=== PATIENT | female | born 1955 | race Hispanic/Latino ===

== ENCOUNTER 2019-11-18 21:11 | Inpatient (IN) | payer MEDICARE ==
[2019-11-18] MEDS ORDERED: Tranexamic Acid 1,000 MG/10 ML VIAL ONE (21:33)
[2019-11-18] MEDS ORDERED: cefTRIAXone\\ROCEPHIN 2 GM VIAL ONE (21:33)
[2019-11-18 21:35] LABS: #Eosinphils 0.1 thou/uL (0.0-0.7); #Lymphocytes 1.5 thou/uL (1.20-3.40); #Monocytes 0.9 thou/uL (0.11-0.59); #Neutrophils 11.5 thou/uL (1.40-6.50); %Basophils 0.3 % (0.0-1.0); %Eosinophils 0.4 % (0.0-10.0); %Lymphocytes 10.7 % (21.0-51.0); %Monocytes 6.7 % (0.0-10.0); %Neutrophils 81.9 % (42.0-75.0); Hemoglobin 7.9 g/dL (12.0-16.0); Mean Corpuscular HGB CONC 33.5 g/dL (32.0-36.0); Mean Platelet Volume 7.7 fL (7.4-10.4); Platelet Count 153 thou/uL (130-400); RBC Distribution Width 14.6 % (11.5-14.5); Red Blood Cell (RBC) Count 2.32 mill/uL (4.20-5.40)
[2019-11-18 21:42] LABS: INR-International Normal Ratio 1.7; PTT 36.6 SEC (22.9-36.1); Prothrombin Time 19.8 SEC (12.0-14.7)
[2019-11-18] MEDS ORDERED: Octreotide Acetate 1,250 MCG in Sodium Chloride 0.9% 250 ML 250 ML IVPB SCH (21:45)
[2019-11-18] MEDS ORDERED: Tranexamic Acid 1,000 MG in Sodium Chloride 0.9% 250 ML 250 ML IVP SCH (21:45)
[2019-11-18 22:00] LABS: ALT (SGPT) 18 U/L (8-55); AST (SGOT) 21 U/L (5-34); Albumin 2.5 g/dL (3.4-4.8); Alkaline Phosphatase 53 U/L (40-110); Anion Gap 19 mmol/L (10-20); BUN (Urea Nitrogen) 36 mg/dL (9.8-20.1); Bilirubin, Total 0.8 mg/dL (0.2-1.2); Calc. Creatinine Clearance 0 mL/min (70-130); Calcium 7.8 mg/dL (7.8-10.44); Carbon Dioxide 13 mmol/L (23-31); Chloride 110 mmol/L (98-107); Estimated GFR-MDRD 84; Globulin 2.2 g/dL (2.4-3.5); Glucose 182 mg/dL (80-115); Potassium 4.2 mmol/L (3.5-5.1); Protein, Total 4.7 g/dL (6.0-8.3); Sodium 138 mmol/L (136-145)
--- NOTE | 2019-11-19 00:10 | PDOC.FPRHP ---
Addendum entered and electronically signed by Felix Mccormack MD 11/19/19 05:05 : All injuries listed in the HPI, Physical Exam, and A/P are in reference to the patient's left knee. Original Note: - History of Present Illness Chief Complaint: Hematemesis History of Present Illness: Patient is a 64 y/o female with a PMH significant for cirrhosis and multiple episodes of hematemesis secondary to esophageal varices that required banding, most recently in January of 2019, who presents to the ED for evaluation of multiple episodes of hematemesis. Patient states that she had ~10 episodes of hematemesis beginning earlier this afternoon. Patient was initially unconcerned, because she had drank a red smoothie earlier in the day, but became concerned when she began to feel weak/dizzy in between episodes. This has not happened recently, although the patient did note that she had intermittently dark/bright red stools over the past several months, but was unconcerned. Patient states that she then tried to castillo to the bathroom in order to vomit again but fell, landing predominantly on her right knee. Patient s subsequently called EMS, who evaluated the patient in the field and found her to be extremely hypotensive, with an SBP in the low 60s. Patient was administered epinephrine and [facility] was alerted. During evacuation, the patient was administered 1U pRBCs and 1U FFP. Patient denied recent fevers, chills, headaches, direct trauma to the head, continued visual disturbances, N/V, cough, SOB, chest pains, ABD pain and ongoing bleeding. ED Course: s/p TXA, Octreotide, Ceftriaxone X-Ray (Right Knee): Comminuted Fx of Patella - official read pending - Allergies/Adverse Reactions Allergies Allergy/AdvReac Type Severity Reaction Status Date / Time Penicillins Allergy Verified 11/19/19 01:27 sea food Allergy Rash Uncoded 11/19/19 01:27 - History PMHx: Hx of Esophageal Varices, Cirrhosis (Etiology Unknown), EtOH Abuse, Tobacco Abuse PSHx: Variceal Banding (2019), Breast Augmentation FHx: Patient denies known history of Colon or Hepatic CA Social: ~3 beers daily, 7-10 cigarettes daily, denies current or previous drug abuse. Code: DNAR - Review of Systems General: denies: fever/chills, fatigue Eyes: denies: vision changes Respiratory: denies: cough, shortness of breath Cardiovascular: denies: chest pain Gastrointestinal: reports: vomiting, GI bleeding. denies: nausea, diarrhea, abdominal pain Skin: reports: jaundice Musculoskeletal: reports: pain, stiffness, swelling, arthritis/arthralgias Neurological: reports: weakness - Vital signs BP: [113/55] HR: [82] RR: [14] Tmax: [] Pox: [98]% on [Room Air] Wt: [51 kg] - Physical Exam Constitutional: NAD, awake, alert and oriented, well developed HEENT: normocephalic and atraumatic, PERRLA, EOMI, grossly normal vision, grossly normal hearing, normal nasal mucosa, MMM, oropharynx clear, good dention , other (Scleral Icterus) Neck: supple, FROM, trachea midline, no LAD, no thyromegaly Chest: no-tender to palpation, no lesions Heart: RRR, normal S1/S2, no murmurs/rubs/gallops, pulses present, no edema Lungs: CTAB, no respiratory distress, good air movement, no rales/rhonchi, no wheezing, no retractions Abdomen: soft, non-tender, bowel sounds present, other (Liver edge palpable 1 cm below costal margin) Musculoskeletal: other (Right leg immobilized in full leg splint) Neurological: no focal deficit Skin: no rash/lesions, capillary refill <2 seconds, other (Jaundice) Heme/Lymphatic: no purpura, no petechia, no LAD, other (Scattered bruises) Psychiatric: intact recent and remote memory FMR H&P: Results - Labs Result Diagrams: 11/19/19 03:30 11/19/19 03:30 Lab results: WBC 14.0 thou/uL (4.8-10.8) H 11/18/19 21:27 Hgb 7.9 g/dL (12.0-16.0) L 11/18/19 21:27 Hct 23.6 % (36.0-47.0) L 11/18/19 21:27 MCV 102.0 fL (78.0-98.0) H 11/18/19 21:27 Plt Count 153 thou/uL (130-400) 11/18/19 21:27 Neutrophils % 81.9 % (42.0-75.0) H 11/18/19 21:27 Sodium 138 mmol/L (136-145) 11/18/19 21:27 Potassium 4.2 mmol/L (3.5-5.1) 11/18/19 21:27 Chloride 110 mmol/L (98-107) H 11/18/19 21:27 Carbon Dioxide 13 mmol/L (23-31) L 11/18/19 21:27 BUN 36 mg/dL (9.8-20.1) H 11/18/19 21:27 Creatinine 0.70 mg/dL (0.6-1.1) 11/18/19 21:27 Glucose 182 mg/dL (80-115) H 11/18/19 21:27 Calcium 7.8 mg/dL (7.8-10.44) 11/18/19 21:27 Total Bilirubin 0.8 mg/dL (0.2-1.2) 11/18/19 21:27 AST 21 U/L (5-34) 11/18/19 21:27 ALT 18 U/L (8-55) 11/18/19 21:27 Alkaline Phosphatase 53 U/L (40-110) 11/18/19 21:27 Serum Total Protein 4.7 g/dL (6.0-8.3) L 11/18/19 21:27 Albumin 2.5 g/dL (3.4-4.8) L 11/18/19 21:27 - Radiology Interpretation Other Status: image reviewed by me (X-Ray (Right Knee): Patellar Fx) FMR H&P: A/P - Problem List (1) Cirrhosis Current Visit: Yes Status: Chronic Code(s): K74.60 - UNSPECIFIED CIRRHOSIS OF LIVER (2) History of ETOH abuse Current Visit: Yes Status: Chronic Code(s): F10.11 - ALCOHOL ABUSE, IN REMISSION (3) Tobacco abuse Current Visit: Yes Status: Chronic Code(s): Z72.0 - TOBACCO USE (4) Acute blood loss anemia Current Visit: Yes Status: Acute Code(s): D62 - ACUTE POSTHEMORRHAGIC ANEMIA (5) Esophageal varices with bleeding Current Visit: Yes Status: Acute Code(s): I85.01 - ESOPHAGEAL VARICES WITH BLEEDING - Plan Patient is a 64 y/o female who presents to the ED for evaluation of hematemesis. 1. Acute Blood Loss Anemia 2/2 Upper GI Bleed -Bleeding likely secondary to Esophageal Varices -s/p 1U pRBCs and 1U FFP -H.9 / Hct: 23.6 -BUN: 36 / Cr: 0.7 -VSS upon evaluation in ED - no evidence of ongoing bleed -Will continue to monitor hemodynamic status -Trend H&H w/ AM Labs 2. Esophageal Varices, suspected -Will initiate Octreotide gtt, Protonix BID -Ceftriaxone for SBP prophylaxis administered in ED - will continue -GI: Consulted from ED - will plan for endoscopy in AM - recs appreciated 3. Patellar Fracture, Right -X-Ray: Comminuted fracture - official read pending -Will consult Ortho in the AM 4. Cirrhosis -Patient is unsure of etiology, likely 2/2 EtOH -PT: 19.8 / INR: 1.7 / aPTT: 36.6 -Patient unsure of current medication regimen - will contact home Pharmacy in AM -MELD: 12 5. Hx of EtOH Abuse -ASE Protocol -Will financial services counselor on the importance of EtOH cessation 6. Tobacco Abuse -Nicotine Patch 14 mg Daily -Will financial services counselor on the importance of tobacco abuse cessation PCP: CC Code: HOLLIS Diet: NPO Activity: Ambulate w/ Assist VTE PPx: None Dispo: Patient is currently hemodynamically stable and admitted to the ICU for close observation and additional work-up. Plan for endoscopy in AM - GI recs appreciated. Plan for Ortho consult pending clinical course. Expected LOS > 48H. FMR H&P: Upper Level - Plan Date/Time: 11/19/19 0010 Lety Schulz DO, have evaluated this patient and agree with findings/plan as outlined by internal carver resident. Pertinent changes/additions are listed here. Pt is a 64 yo F with PMH of Alcoholic Cirrhosis and esophageal varices presenting via [facility] for hematemesis, hematochezia, and hypotension. Last hematemesis several hours ago. S/p 1u pRBC and 1u FFP in route. Dr. Ceja consulted from ED. Currently receiving Octreotide and IV protonix. She received TXA in ED. VS: BP 136/79, P 107, R18, T97.6, O2 100% RA PE: Gen: NAD HEENT: Moist MM, no LAD Heart: RRR, no murmurs or extra sounds. Distal pulses 2+ Lungs: CTAB, no wheezing. No increased work of breathing Abd: soft, nontender, BS+, no masses or hernias Ext: no cyanosis or edema Skin: no rashes Psych: AOx3 Pertinent Labs/Imaging: Blood type A+, antibody Neg Coag: PT 19.8, INR 1.7, PTT 36.6 WBC 14.0 Hgb 7.9, Hct 23.6, MCV 102 A/P: Acute GI Bleed with Known Alcoholic Cirrhosis -initially with hypotension s/p 1u pRBC and 1u FFP. Hemodynamically stable at this point. Repeat H/H 7.9. GI, Dr. Ceja consulted in ED, recommends holding further blood products. AM CBC. -continue Octreotide drip, IV protonix, and Rocephin for SBP prophylaxis -MELD 12 -NPO status pending endoscopy tomorrow in the AM -awaiting home med rec, plan to restart meds as appropriate. Macrocytic Anemia: -likely 2/2 chronic alcohol abuse and GI bleed -trend as above. Hyperchloremic Metabolic Acidosis: -2/2 above. Hyperglycemia: -reports no hx of DM -repeat in AM. Transverse Complete Patellar Fx- Nondisplaced s/p Fall: -brace in place. -consult ortho in am. Alcohol Abuse: -ASE scores without meds -No hx of DT's per patient -Last alcohol ingestion 6pm 11/17. Dispo: Stable, ICU admission to closely monitor with risk of rebleed. DVT PPx: SCD GI PPx: IV Protonix Addendum - Attending - Attending Attestation Date/Time: 11/19/19 1004 I personally evaluated the patient and discussed the management with Dr. Mccormack at time of admission to CCU last night. I agree with the History, Examination, Assessment and Plan documented above with any addition or exceptions noted below.
[2019-11-19] MEDS ORDERED: Nicotine 14 MG PATCH TD SCH (00:25)
[2019-11-19] MEDS ORDERED: Ondansetron ODT 4 MG TAB PO PRN (00:25)
[2019-11-19 04:13] LABS: ALT (SGPT) 22 U/L (8-55); AST (SGOT) 28 U/L (5-34); Albumin 2.9 g/dL (3.4-4.8); Alkaline Phosphatase 54 U/L (40-110); Anion Gap 13 mmol/L (10-20); BUN (Urea Nitrogen) 33 mg/dL (9.8-20.1); Bilirubin, Total 1.1 mg/dL (0.2-1.2); Calc. Creatinine Clearance 68 mL/min (70-130); Calcium 7.7 mg/dL (7.8-10.44); Carbon Dioxide 21 mmol/L (23-31); Chloride 111 mmol/L (98-107); Estimated GFR-MDRD 90; Globulin 2.2 g/dL (2.4-3.5); Glucose 128 mg/dL (80-115); Potassium 4.6 mmol/L (3.5-5.1); Protein, Total 5.1 g/dL (6.0-8.3); Sodium 140 mmol/L (136-145)
[2019-11-19 04:40] LABS: #Lymphocytes 1.8 thou/uL (1.20-3.40); #Monocytes 1.2 thou/uL (0.11-0.59); #Neutrophils 12.3 thou/uL (1.40-6.50); %Basophils 0.2 % (0.0-1.0); %Eosinophils 0.2 % (0.0-10.0); %Lymphocytes 11.5 % (21.0-51.0); %Monocytes 7.7 % (0.0-10.0); %Neutrophils 80.3 % (42.0-75.0); Hemoglobin 7.4 g/dL (12.0-16.0); Mean Corpuscular HGB CONC 33.2 g/dL (32.0-36.0); Mean Corpuscular Hemoglobin 32.5 pg (27.0-31.0); Mean Corpuscular Volume 97.8 fL (78.0-98.0); Mean Platelet Volume 7.9 fL (7.4-10.4); Platelet Count 136 thou/uL (130-400); RBC Distribution Width 15.5 % (11.5-14.5); Red Blood Cell (RBC) Count 2.28 mill/uL (4.20-5.40); White Blood Cell (WBC) Count 15.3 thou/uL (4.8-10.8)
[2019-11-19] MEDS: Pantoprazole 80 MG, Admixture Fee 1 EACH in Sodium Chloride 0.9% 100 ML IVPB SCH ×2 (06:31→14:54)
--- NOTE | 2019-11-19 07:17 | RAD ---
PORTABLE CHEST: HISTORY: Vomiting blood. FINDINGS: The lung lowry are clear. Heart and mediastinum appear unremarkable. The vascular markings are nor mal. There is a calcified nodule overlying the left upper lung. IMPRESSION: No acute process. POS: AGW
--- NOTE | 2019-11-19 07:20 | RAD ---
LEFT KNEE 4 VIEWS: HISTORY: Injury. FINDINGS: There is a transverse fracture through the superior patella without evidence of displacement. Small joint effusion. Mild prepatellar soft tissue swelling. Visualized femur, tibia, and fibula appear intact. There are mild degenerative changes. IMPRESSION: Evidence of acute fracture of patella. POS: AGW
[2019-11-19] MEDS ORDERED: Lidocaine 1% PF 5 ML VIAL ONE (08:13)
[2019-11-19] MEDS ORDERED: Rocuronium Bromide 10 MG/ML (10ML VIAL) ONE (08:13)
[2019-11-19] MEDS ORDERED: Succinylcholine Chloride 20 MG/ML 10 ml SYRINGE FS ONE (08:13)
[2019-11-19] MEDS ORDERED: PROPOFOL 200 MG/20 ML VIAL ONE (08:13)
[2019-11-19] MEDS ORDERED: PHENYLEPHRINE-NS 100 MCG/ML 10 ML SYRINGE ONE (08:13)
[2019-11-19] MEDS ORDERED: EPINEPHrine 1 MG/10 ML Abboject SYRINGE ONE (08:14)
[2019-11-19] MEDS: Nicotine 14 MG PATCH TD SCH (09:06)
[2019-11-19 09:54] LABS: Magnesium 1.7 mg/dL (1.6-2.6); Phosphorus 4.3 mg/dL (2.3-4.7)
[2019-11-19 10:24] LABS: Hemoglobin 6.9 g/dL (12.0-16.0)
[2019-11-19] MEDS ORDERED: Ethanolamine Oleate 5% 2 ml Ampule ONE ×3 (12:41→14:11)
[2019-11-19] MEDS ORDERED: Fentanyl 100 MCG/2 ML VIAL ONE (13:35)
[2019-11-19] MEDS ORDERED: Ventilator Sedation Protocol 1 EACH FS ONE (14:00)
[2019-11-19] MEDS: Propofol 1,000 MG/100 ML VIAL IV PRN ×2 (14:00→18:38)
[2019-11-19] MEDS ORDERED: Propofol BOLUS 1,000 MG/100 ML VIAL IV PRN (14:01)
[2019-11-19] MEDS ORDERED: Lorazepam 2 MG/ML VIAL SLOW IVP PRN (14:01)
[2019-11-19] MEDS ORDERED: DISCONTINUE PREVIOUS NARCOTIC PAIN MEDICATIONS AND BENZODIAZEPINES FS SCH (14:01)
[2019-11-19] MEDS ORDERED: Fentanyl BOLUS 250 ML IVPB PRN (14:01)
[2019-11-19] MEDS ORDERED: fentaNYL Citrate/PF 2,000 MCG in Sodium Chloride 0.9% 60 ML IV SCH (14:01)
[2019-11-19] MEDS ORDERED: Morphine 2 MG/ML SYRINGE SLOW IVP PRN (14:01)
[2019-11-19] MEDS ORDERED: Propofol 1,000 MG/100 ML VIAL IV ONE (14:02)
[2019-11-19] MEDS ORDERED: Vecuronium 10 MG VIAL ONE (14:15)
[2019-11-19] MEDS: Sterile Water 10 ML VIAL IVP PRN ×6 (14:18→17:07)
[2019-11-19] MEDS: Dextrose 5 % And 0.9 % NaCl 1,000 ML IV SCH (14:34)
[2019-11-19 14:44] LABS: Actual Bicarbonate (HCO3a) 18.3 mEq/L (22-28); Base Excess (BEa) -6.5 mEq/L (-2.0 to +3.0); CO2 Tension 33.6 mmHg (35.0-45.0); Calcium, Ionized 1.01 mmol/L (1.12-1.30); Carboxyhemoglobin (COHb) 0.8 gm% (0.0-3.0); Hemoglobin (Hb) 8.3 g/dL (12.0-16.0); O2 Tension (PaO2), arterial 148.6 mmHg (> 80.0); Potassium - ABG Lab 3.39 mmol/L (3.70-5.30); pH, Arterial 7.35 (7.35-7.45)
[2019-11-19 14:46] LABS: Hemoglobin 8.5 g/dL (12.0-16.0)
--- NOTE | 2019-11-19 15:04 | EKG ---
Test Reason : Blood Pressure : / mmHG Vent. Rate : 101 BPM Atrial Rate : 101 BPM P-R Int : 132 ms QRS Dur : 086 ms QT Int : 392 ms P-R-T Axes : 060 041 050 degrees QTc Int : 508 ms Sinus tachycardia Otherwise normal ECG Confirmed by KENNY MORALES DO ([id number]), marketing editor CLAY VOSS ([id number]) on 11/19/2019 3:04:25 PM Referred By: Confirmed By:KENNY MORALES DO
[2019-11-19 15:17] LABS: Puncture Site RBRACH
[2019-11-19] MEDS: Vecuronium 10 MG VIAL IV PRN ×5 (15:39→17:07)
--- NOTE | 2019-11-19 15:54 | CON ---
DATE OF CONSULTATION: 11/19/2019 REASON FOR CONSULT: GI hemorrhage and cirrhosis. HISTORY OF PRESENT ILLNESS: Ms. Tee is a 64-year-old female with a past history of cirrhosis, presumptively from alcohol abuse, who yesterday around noon, started having vomiting. At first she thought what she saw was beet juice, but then had persistent episodes about 10 times and three black liquid stools, began to feel lightheaded and fell, landing on her right knee. She had loss of consciousness. EMS was summoned and brought to [place]. Eventually, she was sent here via air ambulance for severe hypotension. Presently, she has had no further bleeding. She is on octreotide and Protonix drip. She received TXA, a liter of fluid and 2 units of blood and FFP as part of her resuscitation. She notes a prior history of upper gastrointestinal hemorrhage in December of last year. Apparently, she had three endoscopies and banding. Some of this occurred in [place]. The last was in June and at that time, she was told by her rubber roller grinder operator she could have followup with him in this March and advised not to drink alcohol. She does use to drink Tequila daily, heavy amounts, still drinks beer about three per day. She denies any issues of confusion in the past. She has had some mild edema and has been on Aldactone. She is on multivitamin, folate, thiamine and Protonix at home. She denies any shortness of breath or chest pain now. She denies any nausea, vomiting, headache, loss of consciousness. She denies any prior episodes of encephalopathy. She has not been on lactulose in the past. REVIEW OF SYSTEMS: Denies fever, chills, recent respiratory illness, cough, shortness of breath, dyspnea on exertion, dysuria, frequency, urgency, abdominal pain. She has had no recent problems with ascites or peripheral edema. PAST MEDICAL HISTORY: 1. Prior GI bleeding presumptively from esophageal varices. 2. Cirrhosis presumptively from alcohol. She denies any diabetes or heart disease. PAST SURGICAL HISTORY: section, hernia repair, tonsillectomy, right wrist surgery. PSYCHIATRIC HISTORY: Negative. SOCIAL HISTORY: Drinks 2-3 beers . Smokes seven cigarettes per day. ALLERGIES: PENICILLIN. MEDICATIONS: At home, 1. Folic acid. 2. Pantoprazole. 3. Thiamine. 4. Ferrous sulfate. 5. Clonazepam. PHYSICAL EXAMINATION: VITAL SIGNS: Pulse 90, blood pressure 124/56, respirations 17, O2 saturation 100%. GENERAL: She is alert and oriented to person, place, and time. She is nonicteric. NECK: Supple without any adenopathy. There is spider angiomas in the neck, face and upper chest. LUNGS: Clear. HEART: Regular rate and rhythm without clicks or murmurs. ABDOMEN: Soft and nontender. There is no overt shifting dullness. There is slight fluid wave with no palpable hepatosplenomegaly. There is no evidence of umbilical hernia or varices in the abdominal wall. EXTREMITIES: Reveal no clubbing, cyanosis, or edema. Muscle mass is actually pretty good with no overt cachexia. There is no asterixis. Lower extremity, she has a little bit of tenderness in her right knee. PRESENT MEDICATIONS: She is on 1. Rocephin. 2. Folic acid. 3. Nicotine patch. 4. Octreotide drip. 5. Zofran p.r.n. 6. Protonix drip. 7. Normal saline p.r.n. 8. Thiamine. LABORATORY STUDIES: Hemoglobin 6.9 at 10, it was 7.9 at 2100 last night, 7.4 at 3 a.m. this morning. White count 15.3 at 3 a.m., platelet count 136. INR 1.7. Sodium 140, potassium 4.6, bicarb 21, chloride 111, BUN 33, creatinine 0.6, glucose 128, calcium 7.7, phosphorus 4.3, magnesium 1.7, bilirubin 1.1, AST and ALT are 28 and 25, alkaline phosphatase is 54, albumin 2.9, total protein is 5.1. Cultures none. Transfusion of one packed blood cells here and FFP. ASSESSMENT: 1. This is a 64-year-old female with a history of prior cirrhosis with decompensation with some ascites in the past. No encephalopathy. No history of SBP, but prior history of bleeding from varices, presumptively these were esophageal. Now she is admitted with hematemesis and drop in hemoglobin to 6 to 7 range. She had transient severe hypotension with pressures in the 60s, now stable on octreotide, PPI, thiamine, multivitamin, folate. 2. Knee trauma with x-ray last night revealing fractured patella, left knee. 3. Ongoing tobacco use. 4. Ongoing alcohol abuse. 5. Cirrhosis related to alcohol abuse. RECOMMENDATIONS: 1. Continue empiric antibiotics and continue octreotide and PPI. 2. Urgent upper endoscopy today. 3. We would start banana bag on her. Job ID: [id number]
--- NOTE | 2019-11-19 16:44 | CON ---
DATE OF CONSULTATION: 11/20/2019 HISTORY OF PRESENT ILLNESS: Ms. Randal Gonzalez was taken down for upper endoscopy and intubated. She was taken back up to the ICU, intubated. I was consulted to assist in her management. PAST MEDICAL HISTORY: 1. Remarkable for esophageal varices secondary to cirrhosis. She was found to have a Yane-Turner tear as well as varices today. 2. History of . 3. History of herniorrhaphy. 4. History of tonsillectomy. 5. History of wrist surgery in the past. SOCIAL HISTORY: She smokes and drinks, it is unclear how much. ALLERGIES: SHE REPORTS ALLERGIES TO PENICILLIN. MEDICATIONS: Have been reviewed. REVIEW OF SYSTEMS: Cannot be obtained since the patient is sedated and intubated. PHYSICAL EXAMINATION: VITAL SIGNS: Blood pressure is 112/55, heart rate 92, respiratory rate 22, and oximetry is 99. HEENT: Pupils reactive. Sclerae are anicteric. NECK: Supple. LUNGS: Clear. HEART: Regular rhythm. ABDOMEN: Soft. EXTREMITIES: Without asymmetry. LABORATORY STUDIES: Hemoglobin is 8.5 after transfusion. Sodium 140, potassium 4.6, chloride 111, bicarb 21, BUN 33, creatinine 0.66. The pH 7.35, CO2 of 33, and PO2 of 148. IMPRESSION: Respiratory failure. Gastroenterology defers that she be kept sedated for at least 24 hours until tomorrow morning to decrease chances of a rebleed with coughing or retching. She was currently sedated. We will follow the other physicians caring for. CRITICAL CARE TIME: 30 minutes. Job ID: [id number] MTDD
[2019-11-19] MEDS: Multivitamins, Adult 10 ML, Folic Acid 1 MG, Thiamine HCl 100 MG in Dextrose 5 %-0.45 %... IV SCH (18:39)
[2019-11-19 19:12] LABS: Hemoglobin 8.4 g/dL (12.0-16.0)
--- NOTE | 2019-11-19 19:59 | CON ---
DATE OF CONSULTATION: 11/19/2019 REQUESTING PHYSICIAN: Oliver Frankel DO CONSULTING PHYSICIAN: Paul Leal MD REASON FOR CONSULTATION: Left knee superior pole patella fracture. BRIEF CLINICAL HISTORY: Jesica is a 64-year-old female, who was admitted by the [facility] residency program for hematemesis. Apparently, she has had some bleeding from her esophageal varices and she began to feel weak and dizzy, which ultimately resulted in a fall. The patient was brought to [facility] via EMS and plain radiographs of the left knee demonstrated a nondisplaced superior pole patellar fracture. She has been placed in a long-leg immobilizer and our service has been consulted for this. I briefly visited with the patient for about 5 minutes prior to her EGD. She was conversive and talkative. After her EGD, I returned to the intensive care unit to visit with her and the patient had been nasotracheally intubated and was kept on sedation due to the severity of her esophageal varices and concerned over possible Yane-Turner condition. PHYSICAL EXAMINATION: Visual inspection of left lower extremity demonstrates her to have long-leg immobilizer in place. She has bruising around the patella as expected. The knee is not examined further due to known underlying fracture. She is not placed into flexion, but varus and valgus stressing demonstrate MCL and LCL to be intact. IMAGING STUDIES: Two views of left knee demonstrates superior pole patellar fracture with minimal displacement. IMPRESSION: Left patella superior pole nondisplaced fracture. PLAN: Closed treatment at this point is recommended. Continue long-leg immobilizer when she is extubated. She may be up and ambulatory, weightbearing as tolerated as long as she is in a long-leg immobilizer. Continue this therapy for about 6 weeks. We will see the patient again tomorrow. Job ID: [id number]
[2019-11-19] MEDS ORDERED: cefTRIAXone Sodium 2 MG in Syringe 0 ML IVPB SCH (21:30)
[2019-11-19] MEDS ORDERED: cefTRIAXone\\ROCEPHIN 2 GM in Sodium Chloride 0.9% 100 ML IVPB SCH (22:00)
[2019-11-19] MEDS: cefTRIAXone\\ROCEPHIN 1 GM in Sodium Chloride 0.9% 100 ML IVPB SCH (22:39)
[2019-11-19] MEDS: Octreotide Acetate 1,250 MCG in Sodium Chloride 0.9% 250 ML 250 ML IVPB SCH (22:39)
[2019-11-19 23:47] LABS: Hemoglobin 7.6 g/dL (12.0-16.0)
[2019-11-20] MEDS: Pantoprazole 80 MG, Admixture Fee 1 EACH in Sodium Chloride 0.9% 100 ML IVPB SCH ×3 (00:18→21:23)
[2019-11-20] MEDS: Vecuronium 10 MG VIAL IV PRN ×2 (02:02→04:27)
[2019-11-20 04:14] LABS: Anion Gap 6 mmol/L (10-20); BUN (Urea Nitrogen) 26 mg/dL (9.8-20.1); Calc. Creatinine Clearance 63 mL/min (70-130); Carbon Dioxide 23 mmol/L (23-31); Chloride 114 mmol/L (98-107); Estimated GFR-MDRD 82; Glucose 136 mg/dL (80-115); Potassium 4.1 mmol/L (3.5-5.1); Sodium 139 mmol/L (136-145)
[2019-11-20 04:26] LABS: Band 3 % (5-11); Hemoglobin 7.3 g/dL (12.0-16.0); Lymphocytes 10 % (21-51); MDiff Complete? YES; Mean Corpuscular HGB CONC 34.3 g/dL (32.0-36.0); Mean Corpuscular Hemoglobin 33.3 pg (27.0-31.0); Mean Corpuscular Volume 97.2 fL (78.0-98.0); Mean Platelet Volume 7.9 fL (7.4-10.4); Monocytes 12 % (0-10); Myelocyte 1 % (0-0); Neutrophil 74 % (42-75); Platelet Count 119 thou/uL (130-400); Platelet Morphology Comment Appears Decreased; RBC Distribution Width 15.5 % (11.5-14.5); Red Blood Cell (RBC) Count 2.19 mill/uL (4.20-5.40); White Blood Cell (WBC) Count 17.2 thou/uL (4.8-10.8)
[2019-11-20] MEDS: Sterile Water 10 ML VIAL IVP PRN (04:27)
[2019-11-20] MEDS: Dextrose 5 % And 0.9 % NaCl 1,000 ML IV SCH ×2 (04:30→17:05)
[2019-11-20] MEDS: Propofol 1,000 MG/100 ML VIAL IV PRN (04:48)
--- NOTE | 2019-11-20 06:46 | PDOC.FM ---
- Subjective Subjective: Pt currently intubated. No events overnight. - Objective Vital Signs & Weight: Vital Signs (12 hours) Temp Pulse Pulse Ox 11/20/19 04:00 98.1 F 11/20/19 02:28 74 11/20/19 01:00 98.8 F 11/20/19 00:27 73 11/19/19 21:19 79 11/19/19 19:00 98.8 F 100 Weight Weight 51.4 kg Most Recent Monitor Data Heart Rate from ECG 78 NIBP 118/52 NIBP BP-Mean 74 Respiration from ECG 23 SpO2 100 I&O: 11/18/19 11/19/19 11/20/19 06:59 06:59 06:59 Intake Total 377.7 2029.0 Output Total 1550 Balance 377.7 479.0 Result Diagrams: 11/20/19 03:50 11/20/19 03:50 Phys Exam - Physical Examination Constitutional: NAD HEENT: sclera anicteric Respiratory: no wheezing, clear to auscultation bilateral Intubated Cardiovascular: RRR, no significant murmur Gastrointestinal: soft, no distention, positive bowel sounds Musculoskeletal: no edema Skin: no rash Dx/Plan (1) Acute blood loss anemia Code(s): D62 - ACUTE POSTHEMORRHAGIC ANEMIA Status: Acute (2) Esophageal varices with bleeding Code(s): I85.01 - ESOPHAGEAL VARICES WITH BLEEDING Status: Acute (3) Cirrhosis Code(s): K74.60 - UNSPECIFIED CIRRHOSIS OF LIVER Status: Chronic (4) History of ETOH abuse Code(s): F10.11 - ALCOHOL ABUSE, IN REMISSION Status: Chronic (5) Tobacco abuse Code(s): Z72.0 - TOBACCO USE Status: Chronic - Plan Plan: Patient is a 64 y/o female who presents to the ED for evaluation of hematemesis. 1. Acute Blood Loss Anemia 2/2 Upper GI Bleed - Hgb stable > 7 this am, continue to monitor for bleeding, signs of hypovolemia via vitals. - Can recheck H/H this afternoon and transfuse as necessary 2. Esophageal Varices -Continue Octreotide gtt, Protonix BID -Ceftriaxone for SBP prophylaxis -GI consulted, endoscopy with banding/clipping performed; appreciate rec's. - Will medication reconcile patient today - pt currently intubated. Pulm consulted, will discuss extubation later today. 3. Patellar Fracture, Right -Ortho consulted; appreciate rec's. - weight bearing as tolerated in full extension, likely 6 weeks to heal per ortho 4. Cirrhosis 2/2 suspected alcohol - med rec needed 5. Hx of EtOH Abuse -ASE Protocol -Will psychologist counseling on the importance of EtOH cessation 6. Tobacco Abuse -Nicotine Patch 14 mg Daily -Will psychologist counseling on the importance of tobacco abuse cessation PCP: CC Code: Full Diet: NPO Activity: Ambulate w/ Assist VTE PPx: None Dispo: continue current therapy, attempt extubation today Addendum - Attending - Attending Attestation Date/Time: 11/20/19 9410 I personally evaluated the patient and discussed the management with Dr. Frankel. I agree with the History, Examination, Assessment and Plan documented above with any addition or exceptions noted below. Patient intubated and paralyzed, but suspect she will be extubated soon. Occurred due to concern for rebleeding. Her H/H has been stable. GI on board. Continue Protonix, Octreotide, and Rocephin for SBP ppx.
[2019-11-20] MEDS: Nicotine 14 MG PATCH TD SCH (08:36)
[2019-11-20] MEDS ORDERED: Folic Acid 0.4 MG in Syringe 0 ML SC SCH (09:00)
--- NOTE | 2019-11-20 09:47 | RAD ---
SINGLE VIEW OF THE CHEST: COMPARISON: 11/18/2019. HISTORY: Ventilated patient with respiratory failure. FINDINGS: A single view of the chest shows an enlarged cardiomediastinal silhouette with atherosclerotic calcif ications in the aorta. There is an endotracheal tube in good position with its tip above the karen. There is atelectasis in the left lung base. There is no evidence of consolidation, mass, or pleura l effusion. IMPRESSION: Left lower lobe atelectasis. POS: EAA
--- NOTE | 2019-11-20 11:32 | PRG ---
DATE OF SERVICE: 11/20/2019 SUBJECTIVE: Ms. Tee has had no bleeding overnight. Chest radiograph is clear this morning. Hemodynamics have been stable. OBJECTIVE: VITAL SIGNS: Blood pressure 110/49, heart rate 76. She is afebrile. Respiratory rates in the teens. LUNGS: Unchanged. HEART: Unchanged. Abdomen: Unchanged. LABORATORY DATA: White count 17.2, hemoglobin 7.3. She was 8.4 yesterday afternoon. We will give her one more unit of packed cells today. Intake and output was +526. I feel she is a candidate for extubation today. I would think her Rocephin could be discontinued since she is not admitted with an infectious issue, but was admitted with gastrointestinal bleeding. We will continue to follow. Job ID: [id number]
[2019-11-20] MEDS: Multivitamins, Adult 10 ML, Folic Acid 1 MG, Thiamine HCl 100 MG in Dextrose 5 %-0.45 %... IV SCH (13:20)
--- NOTE | 2019-11-20 13:55 | OP ---
DATE OF PROCEDURE: 11/19/2019 PREPROCEDURE DIAGNOSES: 1. History of alcoholic cirrhosis. 2. History of previous variceal hemorrhage. 3. Acute upper gastrointestinal bleeding with 10 episodes of hematemesis at home prior to admission and presentation with hemorrhagic shock requiring air ambulance transfer to this facility last night. 4. Status post FFP, TXA, IV Protonix, and IV octreotide. POSTPROCEDURE DIAGNOSES: 1. 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 2. Yane-Turner tear at the gastroesophageal junction with clot and likely a secondary source of bleeding. No overt varices were seen in this area. At the initiation of endoscopy, there was no active blood seen. 3. Control of hemorrhage of the Yane-Turner tear with injection of 1:10,000 epinephrine 11 mL as there was a visible vessel present in the base of the Yane-Turner tear. This was then closed with hemoclip x4. There was still some slight oozing from the proximal aspect of the tear it is going to the mucosal folds. Entering the distal esophagus, decision was not to place hemoclips due to the severe underlying varices. The patient has had previous treatment. There was significant scarring in the distal esophagus. Therefore, one of the varices at the distal esophagus just proximal to the proximal aspect of the Yane-Turner tear was injected with ethanolamine 5 mL. All bleeding stopped. After this, two large varices with a thrombin clot and the red sarah sign were banded x2 with complete ablation. ANESTHESIA: TIVA conversion to general endotracheal anesthesia, 1 unit of blood transfusion was given. Patient was already on prophylactic antibiotics for the case began. RECOMMENDATIONS: 1. IV Protonix. Continue. 2. IV PPI. Continue. 3. Keep intubated for overnight to prevent retching and re-exacerbating the Yane-Turner tear. 4. Leave the NG tube out. 5. IV banana bag as patient cannot take p.o. now. 6. I discussed all findings with the ICU physician, Dr. Barlow, ICU nurses, and the patient's . PROCEDURE IN DETAIL: After the patient was informed of risks, benefits, and possible complications of endoscopy, including perforation, reaction to medication, and aspiration, informed consent was obtained. Patient was brought to the endoscopy suite, where she was sedated in gradual fashion. Once she was comfortable, bite block was placed inside the orifice. The endoscope was advanced through the esophagus, stomach, and second and third portions of the duodenum and slowly removed. The esophagus is notable for grade 3 varices, two columns in the distal third of the esophagus with red sarah sign and one area of what appeared to be thrombin clot. The scope was entered into the GE junction, was notable for a little visible vessel was noted what appeared to be a very inflamed area, which ultimately felt was a Yane-Turner tear. The concern is in the cirrhotic is whether underlying varices. In retroflexed views, there did not appear to be any proximal esophageal varices or varices extending from the esophagus on the proximal stomach. Despite all of this with no history of cirrhosis and prior variceal hemorrhage, decision was tried to go ahead and band the Yane-Turner tear. We able to band one visible vessel within the bleeding began in an arterial fashion from just above this. At this point time, epinephrine 1:10,000 was used to inject the bleeding visible vessel that seems to be arterial from the proximal aspect of the Yane-Turner tear and bleeding subsided. At this point, it was decided as there were no large varices seen in this area, this is a very large tear to go ahead and close this with hemoclips, which was done x4. At the proximal aspect moving the esophagus in forward view, there was still active oozing. There were varices in this area that were quite flat with multiple scars from previous treatments and this was injected with ethanolamine 5 mL total with cessation of bleeding. The scope was then removed and a banding kit was applied in the more proximal varices at about 35 to 30 cm were banded x2 making sure to band the areas with red sarah sign and also the area with thrombin clot. No bleeding ensued. The scope was removed. The patient tolerated the procedure well. No complications. The patient was brought intubated to ICU. Job ID: [id number]
[2019-11-20] MEDS: cefTRIAXone\\ROCEPHIN 1 GM in Sodium Chloride 0.9% 100 ML IVPB SCH (21:23)
[2019-11-20] MEDS: Octreotide Acetate 1,250 MCG in Sodium Chloride 0.9% 250 ML 250 ML IVPB SCH (23:02)
[2019-11-21 05:07] LABS: Anion Gap 7 mmol/L (10-20); BUN (Urea Nitrogen) 11 mg/dL (9.8-20.1); Calc. Creatinine Clearance 84 mL/min (70-130); Carbon Dioxide 22 mmol/L (23-31); Chloride 114 mmol/L (98-107); Estimated GFR-MDRD Greater than 90; Glucose 120 mg/dL (80-115); Potassium 3.8 mmol/L (3.5-5.1); Sodium 139 mmol/L (136-145)
[2019-11-21 05:13] LABS: Band 17 % (5-11); Eosinophils 2 % (0-10); Hemoglobin 7.1 g/dL (12.0-16.0); Lymphocytes 13 % (21-51); MDiff Complete? YES; Mean Corpuscular HGB CONC 32.9 g/dL (32.0-36.0); Mean Corpuscular Hemoglobin 31.6 pg (27.0-31.0); Mean Corpuscular Volume 96.2 fL (78.0-98.0); Mean Platelet Volume 8.2 fL (7.4-10.4); Monocytes 10 % (0-10); Neutrophil 57 % (42-75); Nucleated RBC 2 % (0); Platelet Count 99 thou/uL (130-400); Platelet Morphology Comment Appears Decreased; RBC Distribution Width 15.6 % (11.5-14.5); Red Blood Cell (RBC) Count 2.26 mill/uL (4.20-5.40); White Blood Cell (WBC) Count 16.3 thou/uL (4.8-10.8)
[2019-11-21] MEDS: Dextrose 5 % And 0.9 % NaCl 1,000 ML IV SCH ×2 (05:57→20:19)
--- NOTE | 2019-11-21 06:59 | PDOC.FM ---
- Subjective Subjective: Pt is doing better today. She has no pain, no complaints. She tolerated her clear liquid diet. Vitals were stable overnight. She remains in splint. - Objective Vital Signs & Weight: Vital Signs (12 hours) Temp BP Pulse Ox 11/21/19 04:00 99.2 F 11/21/19 00:00 99.3 F 106/42 L 11/20/19 20:00 97.8 F 95 Weight Weight 56.7 kg Most Recent Monitor Data Heart Rate from ECG 81 NIBP 115/53 NIBP BP-Mean 73 Respiration from ECG 15 SpO2 96 I&O: 11/19/19 11/20/19 11/21/19 06:59 06:59 06:59 Intake Total 377.7 2076.0 4378 Output Total 1550 967 Balance 377.7 526.0 3411 Result Diagrams: 11/21/19 04:05 11/21/19 04:05 Phys Exam - Physical Examination Constitutional: NAD HEENT: PERRLA dry MMs Neck: no JVD, full ROM Respiratory: no wheezing, clear to auscultation bilateral Cardiovascular: RRR, no significant murmur Gastrointestinal: soft, non-tender, no distention, positive bowel sounds Musculoskeletal: no edema, pulses present Neurological: non-focal, normal sensation Psychiatric: normal affect, A&O x 3 Skin: no rash, normal turgor Dx/Plan (1) Acute blood loss anemia Code(s): D62 - ACUTE POSTHEMORRHAGIC ANEMIA Status: Acute (2) Esophageal varices with bleeding Code(s): I85.01 - ESOPHAGEAL VARICES WITH BLEEDING Status: Acute (3) Cirrhosis Code(s): K74.60 - UNSPECIFIED CIRRHOSIS OF LIVER Status: Chronic (4) History of ETOH abuse Code(s): F10.11 - ALCOHOL ABUSE, IN REMISSION Status: Chronic (5) Tobacco abuse Code(s): Z72.0 - TOBACCO USE Status: Chronic - Plan Plan: Patient is a 64 y/o female who presents to the ED for evaluation of hematemesis. # Acute Blood Loss Anemia 2/2 Upper GI Bleed - Hgb stable > 7 this am, continue to monitor for bleeding, signs of hypovolemia via vitals. - Will discuss need for transfusion on rounds # Esophageal Varices, Yane Turner Tear -Continue Octreotide gtt, Protonix BID -Ceftriaxone for SBP prophylaxis -GI consulted, endoscopy with banding/clipping performed; appreciate rec's. - Will medication reconcile patient today - pt extubated # Patellar Fracture, Right -Ortho consulted; appreciate rec's. - weight bearing as tolerated in full extension, likely 6 weeks to heal per ortho # Cirrhosis 2/2 suspected alcohol - med rec needed # Hx of EtOH Abuse -ASE Protocol -Will disability counselor on the importance of EtOH cessation 6. Tobacco Abuse -Nicotine Patch 14 mg Daily -Will disability counselor on the importance of tobacco abuse cessation PCP: [facility] Code: Full Diet: NPO Activity: Ambulate w/ Assist VTE PPx: None Dispo: continue current therapy, consider transfer to floor Addendum - Attending - Attending Attestation Date/Time: 11/21/19 1129 I personally evaluated the patient and discussed the management with Dr. Frankel. I agree with the History, Examination, Assessment and Plan documented above with any addition or exceptions noted below. Patient stable. H/H stable. GI on board. Hopeful escalation in diet today. Octreotide continues.
[2019-11-21] MEDS: Pantoprazole 80 MG, Admixture Fee 1 EACH in Sodium Chloride 0.9% 100 ML IVPB SCH (07:10)
--- NOTE | 2019-11-21 07:36 | PRG ---
DATE OF SERVICE: 11/20/2019 REASON FOR CONSULTATION: GI hemorrhage, cirrhosis. SUBJECTIVE: Yesterday, the patient underwent upper endoscopy with findings of a Yane-Turner tear and significant esophageal varices with active bleeding seen during that examination. Hemostasis was finally able to be achieved with placement of hemoclips and band ligation. Overnight, the patient did not exhibit any acute events or problems while on mechanical ventilation. Per nursing staff, she has not had any episodes of hematemesis, melena, or hematochezia. With her relatively stable respiratory status, she was extubated this afternoon and has been doing well since then with no further episodes of nausea and vomiting. Currently, she states that she is thirsty, but otherwise has no complaints. Currently, she denies any nausea, vomiting, fevers, chills, hematemesis, melena, hematochezia, or abdominal pain. OBJECTIVE: VITAL SIGNS: Temperature 98.5, pulse 80, blood pressure 128/56, respiratory rate 17, saturating 99% on room air. GENERAL: The patient was lying in bed, in no acute distress. Alert and oriented x4. CARDIOVASCULAR: Regular rate and rhythm with no discernible murmurs, gallops, or rubs. RESPIRATORY: Clear to auscultation bilaterally. ABDOMEN: Normoactive bowel sounds. Soft, nontender, nondistended. EXTREMITIES: No cyanosis, clubbing, or edema. LABORATORY DATA: CBC with a white blood cell count of 17.2, hemoglobin 7.3, hematocrit 21.3, platelets 119. Chemistry with a sodium of 139, potassium 4.1, chloride 114, CO2 of 23, BUN 26, creatinine 0.71, glucose 136. IMAGING STUDIES: The patient underwent upper endoscopy on November 19, 2019, which showed large distal esophageal varices with red sarah signs (high-risk stigmata of bleeding) as well as a fibrin clot, then underwent band ligation x2. A Yane-Turner tear was also seen at the gastroesophageal junction with overlying clot that did exhibit a visible vessel as well as active bleeding that was subsequently intervened upon with epinephrine injection, hemoclip x4. Also, one of the varices in the distal esophagus just proximal to the Yane-Turner tear did exhibit some enlargement during the procedure concerning for impending rupture and was subsequently injected with ethanolamine 5 mL with good hemostasis achieved. ASSESSMENT AND PLAN: The patient is a 64-year-old female with a past medical history of alcoholic cirrhosis with current alcohol use, complicated by esophageal varices, presenting with acute GI bleeding from a Yane-Turner tear and/or esophageal varix. 1. Upper GI bleeding: The patient initially presented with increased episodes of nausea and vomiting with the appearance of darker bright red emesis that she first attributed to beet juice. However, with continued nausea and vomiting, she began to have liquid black stools concerning for GI bleeding. She ultimately lost consciousness at home and was subsequently brought to [place] via EMS and life flighted to [place], [place] for further evaluation. With her history of cirrhosis and continued alcohol abuse, she subsequently underwent upper endoscopy on November 19, 2019, which showed the presence of large distal esophageal varices with high-risk stigmata of bleeding in addition to an actively bleeding Yane-Turner tear in the distal esophagus. The Yane-Turner tear was intervened upon with epinephrine and hemoclip placement; however, the esophageal varices did exhibit again high-risk stigmata bleeding and were subsequently intervened upon with band ligation x2 as well as ethanolamine 5 mL. Since that time, she has not had any further episodes of hematemesis nor melena, and while she did have a decrease in her hemoglobin and hematocrit, this is most likely her body equilibrating to her new whole-body blood volume. She was given an additional unit of blood this morning given the continued downtrend, but hopefully, this will stabilize over the next 24 to 48 hours. Recommendations;. a. Would continue to trend her hemoglobin and hematocrit and transfuse as necessary to maintain hemoglobin and hematocrit of 7/21. b. Continue to monitor clinically for signs of active GI bleeding. c. Would continue the octreotide for a total duration of therapy of 72 hours. d. Would continue the patient on PPI drip, but could potentially transfer to 40 mg IV b.i.d. tomorrow. e. Would continue the patient on ceftriaxone 1 g daily in light of recent active GI bleed in a cirrhotic patient and prevention of infection per guidelines. f. Could advance the patient's diet to clear liquid diet with continued monitoring of the patient in the ICU. 2. Cirrhosis. The patient is also presenting with a prior history of cirrhosis with upper gastrointestinal hemorrhage in December of 2018. Apparently, she had 3 upper endoscopies at that time with subsequent banding with some of these procedures occurring in [place]. She was advised about complete cessation of alcohol at that time, but does continue to drink at least 2 to 3 beers every day. At this time, she is presenting with decompensated disease as evidenced by the presence of bleeding esophageal varices. Her current MELD score is 13, which carries less than 2% 90-day mortality and a Child-Dixon classification of B. The patient does not have any intraabdominal imaging per our system for evaluation of possible hepatoma formation contributing to increased portal pressures and resultant esophageal varices, although she is currently being followed by a medical lab tech instructor in [place] it seems and will most likely need close followup with that physician on discharge. Recommendations;. a. Strongly encouraged complete alcohol cessation for this particular patient. b. The patient will need followup with her outpatient resolution specialist once discharged. c. Would consider placing the patient on nonselective beta-blockade in light of her recent GI bleed, but would hold on this until shortly before discharge due to possible hypotension associated with these medications. We will continue to follow. Please call with any questions. Job ID: [id number]
--- NOTE | 2019-11-21 08:52 | RAD ---
CHEST 1 VIEW: INDICATION: History of intubation. COMPARISON: Prior exam dated 11/20/2019. FINDINGS: The patient has been intervally extubated. There are worsening bibasilar opacities and small bilater al pleural effusions. Cardiomegaly persists. No pneumothorax is evident. IMPRESSION: 1. Worsening bibasilar pleural parenchymal opacities suspicious for worsening effusions and bibasila r atelectasis. Continued followup is recommended. 2. Interval intubation. 3. Stable left upper lobe calcified granuloma. POS: [facility]
[2019-11-21] MEDS: Nicotine 14 MG PATCH TD SCH (09:28)
--- NOTE | 2019-11-21 13:34 | PRG ---
DATE OF SERVICE: 11/21/2019 REASON FOR CONSULTATION: GI hemorrhage, cirrhosis. SUBJECTIVE: The patient was extubated yesterday without difficulty, and since that time, she has not had any further episodes of nausea or vomiting. She denies any further episodes of hematemesis or melena and has been able to tolerate a clear liquid diet without difficulty. Currently, she is doing well with no complaints of nausea, vomiting, fevers, chills, abdominal pain, or GI bleeding. OBJECTIVE: VITAL SIGNS: Temperature 99.1, pulse 79, blood pressure 110/49, respiratory rate 16, saturating 94% on room air. GENERAL: The patient was lying in bed, in no acute distress. Alert and oriented x4. CARDIOVASCULAR: Regular rate and rhythm. RESPIRATORY: Clear to auscultation bilaterally. ABDOMEN: Normoactive bowel sounds. Soft, nontender, nondistended. EXTREMITIES: No cyanosis, clubbing, or edema. LABORATORY DATA: CBC with a white blood cell count of 16.3, hemoglobin 7.1, hematocrit 21.7, and platelets 99. Chemistry with a sodium of 139, potassium 3.8, chloride 114, CO2 of 22, BUN 11, creatinine 0.59, and glucose 120. IMAGING DATA: No current GI imaging is available for review. ASSESSMENT AND PLAN: The patient is a 64-year-old female with past medical history of alcoholic cirrhosis with current alcohol use, complicated by esophageal varices, now presenting with acute gastrointestinal bleeding from a Yane-Turner tear with probable bleeding from an esophageal varix as well. Upper gastrointestinal bleeding: The patient initially presented with increased episodes of nausea and vomiting with overt hematemesis. She was subsequently life flighted to [place], [place] for further evaluation and underwent upper endoscopy on November 19, 2019, which showed the presence of large distal esophageal varices with high-risk stigmata of bleeding in addition to an actively bleeding Yane-Turner tear in the distal esophagus. Both Yane-Turner tear and the esophageal varices were intervened upon successfully with good hemostasis achieved. Since that time, she has not had any further episodes of nausea, vomiting, hematemesis nor melena. She does have a mildly decreased H and H when compared to yesterday, but I would not consider this a significant change. Recommendations: 1. We would continue to trend her H and H and transfuse as necessary to maintain an H and H of 02/09. 2. Continue to monitor clinically for signs of active gastrointestinal bleeding. 3. We will continue the octreotide for a total duration of therapy for 72 hours (most likely discontinue in the next 24 hours). 4. We will continue the patient on PPI administration, but can transfer the patient to 40 mg IV b.i.d. 5. We will continue the patient on ceftriaxone 1 g daily in light of active recent GI bleeding in a cirrhotic patient and prevention of infection per guidelines. This should be continued for 5 to 7 days total for therapy. 6. Can advance the patient's diet to full liquid diet today. Cirrhosis: The patient is also presenting with a prior history of cirrhosis, complicated by variceal bleeding with most recent upper endoscopy prior to this admission being in December of 2018. Apparently, she had 3 upper endoscopies at that time with band ligation performed during those upper endoscopies. However, the patient does continue to drink alcohol in the form of Tequila and/or beer. Currently, she is presenting with decompensated disease, especially with the probable bleeding from her esophageal varices. Current MELD score is 13 with a Child-Dixon classification B. Currently, the patient is being followed as an outpatient by bank messenger in [place] and will need close followup with that physician on discharge. Recommendations: 1. Strongly encourage complete alcohol cessation. 2. We will consider placing the patient on a nonselective beta-blockade shortly before discharge, but we will continue to hold on this modality in light of her recent GI bleed and hypotension associated with it. 3. The patient will need close followup with her outpatient outbound telemarketing representative/bank messenger once discharge. We will continue to follow. Dr. Del Real will be following over the weekend. Please direct any questions to him. Job ID: [id number]
[2019-11-21] MEDS: Multivitamins, Adult 10 ML, Folic Acid 1 MG, Thiamine HCl 100 MG in Dextrose 5 %-0.45 %... IV SCH (14:40)
--- NOTE | 2019-11-21 17:41 | PRG ---
DATE OF SERVICE: 11/21/2019 SUBJECTIVE: Jesica Gonzalez has no complaints. She has had no bleeding. OBJECTIVE: VITAL SIGNS: Heart rate 83, blood pressure 124/56, respiratory rate 18. LUNGS: Clear. HEART: Regular rhythm. ABDOMEN: Soft. LABORATORY DATA: White count 16.3, hemoglobin 7.1, platelets 99,000. She did receive a unit of blood yesterday and went from 7.3 to 7.1, so maybe she is oozing. Hemodynamically she has been stable and had no external bleeding to report. IMPRESSION: Gastrointestinal blood loss, clinically stable. She is stable to move out of the Critical Care Unit in my opinion unless she shows signs of rebleeding. Job ID: [id number]
[2019-11-21] MEDS: Pantoprazole 40 MG VIAL IVP SCH (21:16)
[2019-11-21] MEDS ORDERED: cefTRIAXone\\ROCEPHIN 1 GM VIAL ONE (22:42)
[2019-11-21] MEDS: cefTRIAXone\\ROCEPHIN 1 GM in Sodium Chloride 0.9% 100 ML IVPB SCH (22:44)
[2019-11-22] MEDS: Dextrose 5 % And 0.9 % NaCl 1,000 ML IV SCH (04:43)
[2019-11-22 06:06] LABS: Anion Gap 8 mmol/L (10-20); BUN (Urea Nitrogen) 7 mg/dL (9.8-20.1); Calc. Creatinine Clearance 90 mL/min (70-130); Carbon Dioxide 21 mmol/L (23-31); Chloride 111 mmol/L (98-107); Estimated GFR-MDRD Greater than 90; Glucose 122 mg/dL (80-115); Potassium 3.4 mmol/L (3.5-5.1); Sodium 137 mmol/L (136-145)
--- NOTE | 2019-11-22 06:11 | PDOC.FM ---
- Subjective Subjective: Pt is doing well today. She takes spironolactone which helps with abdominal distention. She is experiencing distention. This happened last time she stopped spironolactone for her procedure. Otherwise she feels much better. She tolerated advancement of her diet. - Objective Vital Signs & Weight: Vital Signs (12 hours) Temp Pulse Resp BP Pulse Ox 11/22/19 04:00 98.2 F 77 16 135/62 92 L 11/21/19 23:34 98.7 F 83 16 159/71 H 94 L 11/21/19 20:45 99.0 F 89 20 143/65 H 93 L 11/21/19 20:00 99.1 F 93 L Weight Weight 56.7 kg Most Recent Monitor Data Heart Rate from ECG 78 NIBP 128/58 NIBP BP-Mean 81 Respiration from ECG 17 SpO2 92 I&O: 11/20/19 11/21/19 11/22/19 06:59 06:59 06:59 Intake Total 2076.0 4378 1498 Output Total 0507 496 2873 Balance 526.0 3411 330 Result Diagrams: 11/22/19 05:23 11/22/19 05:23 Phys Exam - Physical Examination Constitutional: NAD HEENT: PERRLA, moist MMs Neck: no nodes, no JVD Respiratory: no wheezing, clear to auscultation bilateral Cardiovascular: RRR, no significant murmur Gastrointestinal: soft, positive bowel sounds mild distention Musculoskeletal: no edema, pulses present Neurological: non-focal, normal sensation Psychiatric: normal affect, A&O x 3 Dx/Plan (1) Acute blood loss anemia Code(s): D62 - ACUTE POSTHEMORRHAGIC ANEMIA Status: Acute (2) Esophageal varices with bleeding Code(s): I85.01 - ESOPHAGEAL VARICES WITH BLEEDING Status: Acute (3) Cirrhosis Code(s): K74.60 - UNSPECIFIED CIRRHOSIS OF LIVER Status: Chronic (4) History of ETOH abuse Code(s): F10.11 - ALCOHOL ABUSE, IN REMISSION Status: Chronic (5) Tobacco abuse Code(s): Z72.0 - TOBACCO USE Status: Chronic - Plan Plan: Patient is a 64 y/o female who presents to the ED for evaluation of hematemesis. # Acute Blood Loss Anemia 2/2 Upper GI Bleed - stable - Hgb stable > 7 this am, continue to monitor for bleeding, signs of hypovolemia via vitals. # Esophageal Varices, Yane Turner Tear -d/c Octreotide gtt after 72 hours, Protonix BID -Ceftriaxone for SBP prophylaxis. Switch to ciprofloxacin 500 mg PO BID for a total of 7 day course on discharge. -GI consulted, endoscopy with banding/clipping performed; appreciate rec's. - Her primary GI team will not be sending her records until 11/24/19 for med rec, pt will need to continue home meds and follow up with primary GI team next week. - pt extubated - consider advancing diet as tolerated # Patellar Fracture, Right -Ortho consulted; appreciate rec's. - weight bearing as tolerated in full extension, likely 6 weeks to heal per ortho - follow up outpt # Cirrhosis 2/2 suspected alcohol - as above - pt takes spironolactone 25 mg, Propranolol 40 mg daily. Restart spironolactone for pt's abdominal ascites # Hx of EtOH Abuse -ASE Protocol -Will general counselor on the importance of EtOH cessation # Tobacco Abuse -Nicotine Patch 14 mg Daily -Will general counselor on the importance of tobacco abuse cessation PCP: [facility] Code: Full Diet: Full liquid, advance today Activity: Ambulate w/ Assist VTE PPx: None Dispo: pt d/c octreotide, hemodynamically, stable for d/c with close follow up - will discuss on rounds and w/ GI. She needs to continue home medications Addendum - Attending - Attending Attestation Date/Time: 11/22/19 1105 I personally evaluated the patient and discussed the management with Dr. Frankel. I agree with the History, Examination, Assessment and Plan documented above with any addition or exceptions noted below. Patient improved. Escalate to GI soft diet. H/H stable. Off Octreotide, continuing Rocephin and Protonix. GI on board. Initiating her diuretic regimen due to increased swelling as she has been off Aldactone for several days. Hopeful to dc in next 1-2 days.
[2019-11-22 06:15] LABS: Band 1 % (5-11); Hemoglobin 7.3 g/dL (12.0-16.0); Hypochromia SLIGHT = 6-15 cells (100X) (0-5/hpf); Lymphocytes 13 % (21-51); MDiff Complete? YES; Mean Corpuscular HGB CONC 34.9 g/dL (32.0-36.0); Mean Corpuscular Hemoglobin 33.1 pg (27.0-31.0); Mean Platelet Volume 7.8 fL (7.4-10.4); Monocytes 14 % (0-10); Neutrophil 72 % (42-75); Platelet Count 113 thou/uL (130-400); Platelet Morphology Comment Appears Decreased; RBC Distribution Width 15.1 % (11.5-14.5); White Blood Cell (WBC) Count 11.4 thou/uL (4.8-10.8)
[2019-11-22] MEDS ORDERED: Potassium Chloride 20 MEQ TAB PO SCH (06:30)
[2019-11-22] MEDS: Pantoprazole 40 MG VIAL IVP SCH (08:55)
[2019-11-22] MEDS: Nicotine 14 MG PATCH TD SCH (08:55)
[2019-11-22] MEDS: Spironolactone 25 MG TAB PO SCH (11:14)
--- NOTE | 2019-11-22 11:34 | PRG ---
DATE OF SERVICE: 11/22/2019 SUBJECTIVE: The patient's vital signs have been stable. OBJECTIVE: VITAL SIGNS: She is afebrile. Heart rate is 77, respiratory rate is 20, oximetry is 96% on room air, blood pressure 142/67. LABORATORY DATA: Hemoglobin stable at 7.3 g. IMPRESSION: Status post GI bleed. In my opinion, she is probably stable for discharge. We will sign off. Job ID: [id number]
[2019-11-22 14:39] LABS: #Eosinphils 0.2 thou/uL (0.0-0.7); #Lymphocytes 1.4 thou/uL (1.20-3.40); #Monocytes 1.1 thou/uL (0.11-0.59); #Neutrophils 10.2 thou/uL (1.40-6.50); %Basophils 0.3 % (0.0-1.0); %Eosinophils 1.6 % (0.0-10.0); %Lymphocytes 10.5 % (21.0-51.0); %Monocytes 8.7 % (0.0-10.0); %Neutrophils 78.9 % (42.0-75.0); Hemoglobin 8.3 g/dL (12.0-16.0); Mean Corpuscular HGB CONC 34.6 g/dL (32.0-36.0); Mean Corpuscular Volume 95.4 fL (78.0-98.0); Mean Platelet Volume 7.2 fL (7.4-10.4); Platelet Count 138 thou/uL (130-400); RBC Distribution Width 15.4 % (11.5-14.5)
--- NOTE | 2019-11-22 14:51 | PRG ---
DATE OF SERVICE: 11/22/2019 HISTORY: This is a 64-year-old female with liver cirrhosis with alcohol abuse. The patient is hospitalized on 11/19/2019 with upper GI bleeding. She underwent EGD by Dr. Paul Guzman and was found to have a Yane-Turner tear with bleeding and also esophageal varices. She underwent hemoclipping of the Yane-Turner tear and also had esophageal varices banding done. She had done well over the last 48 hours. No abdominal pain, no nausea, no vomiting. She has had no stool since admission. The patient has no complaints. No chest pain, no abdominal pain, no nausea or vomiting. 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 Apparently, she has had EGD and variceal banding done by Dr. Martins in December and January of 2019. She also had variceal banding done in [place] when she was visiting her brother. OBJECTIVE: VITAL SIGNS: Afebrile, pulse is 77, and blood pressure is 142/67. CARDIOVASCULAR: Within normal limits. LUNGS: Within normal limits. ABDOMEN: Soft. No organomegaly. No tenderness. No masses. LABORATORY DATA: From today, WBC 11,400, hemoglobin 7.3, hematocrit 20.9, MCV 95, and platelet count 113,000. The chemistry panel is actually normal today. BUN 7, creatinine 0.55, glucose 122, and calcium 7. CLINICAL IMPRESSION: 1. Liver cirrhosis. 2. Yane-Turner tear with bleeding, status post hemoclip placement and injection of epinephrine. 3. Esophageal varices, status post Ethamolin injection, status post variceal banding. RECOMMENDATION: 1. Diet as tolerated. 2. Follow up H and H. 3. Transfuse p.r.n. Today, she is stable. Hopefully, she can be discharged over the next 24 to 48 hours. She will go back to see Dr. aMrtins in [place], [place] in the near future. Job ID: [id number]
[2019-11-22] MEDS: Multivitamins, Adult 10 ML, Folic Acid 1 MG, Thiamine HCl 100 MG in Dextrose 5 %-0.45 %... IV SCH (16:18)
[2019-11-22] MEDS ORDERED: Acetaminophen 325 MG TAB PO PRN (17:09)
--- NOTE | 2019-11-22 17:13 | PDOC.BPN ---
- Brief Progress Note Pt had elevated temperature around 1630 on 11/22/19. She is 3 days out from her procedure. She has not been anti-coagulated. Will work up for infection with CXR, CBC, BMP, UA, UCx, BCx. Possibly secondary to atalectasis - will give incentive spirometer. Do not believe this secondary to PE as she is not having pleuritic chest pain, dyspnea, oxygen desaturation. She does endorse mild cough present since extubation. Resident: Oliver Frankel Attending: Jer Keene 11/22/19 [id number]
--- NOTE | 2019-11-22 18:02 | RAD ---
PORTABLE CHEST ONE VIEW: 11/22/19 at 5:50 p.m. HISTORY: Fever, cough. COMPARISON: Previous day. FINDINGS: The heart size is stable. Bibasilar infiltrates with accompanying effusions are again seen. Calcified granuloma in the left upper lobe is stable. No pneumothoraces are identified. IMPRESSION: Stable exam. POS: [facility]
[2019-11-22 18:04] LABS: Hemoglobin 8.4 g/dL (12.0-16.0); Mean Corpuscular HGB CONC 34.4 g/dL (32.0-36.0); Mean Corpuscular Hemoglobin 33.3 pg (27.0-31.0); Mean Corpuscular Volume 96.9 fL (78.0-98.0); Mean Platelet Volume 7.6 fL (7.4-10.4); Platelet Count 121 thou/uL (130-400); RBC Distribution Width 15.8 % (11.5-14.5); Red Blood Cell (RBC) Count 2.51 mill/uL (4.20-5.40); White Blood Cell (WBC) Count 14.2 thou/uL (4.8-10.8)
[2019-11-22 18:22] LABS: Anion Gap 11 mmol/L (10-20); BUN (Urea Nitrogen) 7 mg/dL (9.8-20.1); Calc. Creatinine Clearance 92 mL/min (70-130); Calcium 7.4 mg/dL (7.8-10.44); Carbon Dioxide 20 mmol/L (23-31); Chloride 110 mmol/L (98-107); Estimated GFR-MDRD Greater than 90; Glucose 83 mg/dL (80-115); Potassium 4.2 mmol/L (3.5-5.1); Sodium 137 mmol/L (136-145)
[2019-11-22 18:23] LABS: Anisocytosis SLIGHT = 6-15 cells (100X) (0-5/hpf); Band 3 % (5-11); Eosinophils 1 % (0-10); Lymphocytes 10 % (21-51); MDiff Complete? YES; Monocytes 10 % (0-10); Neutrophil 74 % (42-75); Platelet Morphology Comment Appears Decreased; Polychromasia MODERATE = 3-4 cells (100X) (0-2/hpf)
[2019-11-22] MEDS: cefTRIAXone\\ROCEPHIN 1 GM in Sodium Chloride 0.9% 100 ML IVPB SCH (21:13)
[2019-11-22] MEDS ORDERED: Vancomycin 1 GM in Premix Bag 1 BAG IVPB SCH (22:00)
[2019-11-22 22:21] LABS: Bilirubin Negative (Negative); Blood, Urine 2+ (Negative); Clarity Clear (Clear); Glucose, Urine (Dipstick) Normal (Negative); Leukocyte 75 Leu/uL (Negative); Mucous/LPF Rare LPF (<2+); Nitrite Negative (Negative); Protein, Urine (Dipstick) 10 mg/dL (Neg-Trace); RBC/HPF Greater than 50 HPF (0-3); Renal Epithelial 0-3 HPF (None Seen); Squamous Epithelial 0-3 HPF (0-3); Urobilinogen Greater than 12 mg/dL (Less than 2)
[2019-11-22 22:25] LABS: Bacteria/HPF Rare-Few HPF (None Seen)
--- NOTE | 2019-11-23 06:21 | PDOC.FM ---
- Subjective Subjective: Pt denies pain at this time. She has not had fever since last night and did not receive tylenol. She continues with mild, nonproductive cough and is utilizing her incentive spirometer. She has not voided since the catheter was removed. Nursing staff will walk her to the restroom after her u/s. - Objective MAR Reviewed: Yes Vital Signs & Weight: Vital Signs (12 hours) Temp Pulse Resp BP BP Pulse Ox 11/23/19 04:00 99.1 F 81 16 133/63 96 11/22/19 23:57 99.0 F 11/22/19 23:00 99.9 F H 11/22/19 20:00 100.7 F H 90 16 128/61 128/61 97 Weight Weight 56.7 kg Most Recent Monitor Data Heart Rate from ECG 78 NIBP 128/58 NIBP BP-Mean 81 Respiration from ECG 17 SpO2 92 I&O: 11/21/19 11/22/19 11/23/19 06:59 06:59 06:59 Intake Total 4378 2111 90 Output Total 967 1168 700 Balance 3411 943 -610 Result Diagrams: 11/23/19 09:41 11/23/19 06:28 Radiology Reviewed by me: Yes (Bibasilar infiltrates ) Phys Exam - Physical Examination Constitutional: NAD HEENT: PERRLA, moist MMs Neck: no nodes, full ROM will check respiratory status on rounds Cardiovascular: RRR, no significant murmur Gastrointestinal: soft, non-tender, positive bowel sounds mild distention Musculoskeletal: no edema, pulses present Neurological: non-focal, moves all 4 limbs Psychiatric: normal affect, A&O x 3 Skin: no rash, cap refill <2 seconds Dx/Plan (1) Acute blood loss anemia Code(s): D62 - ACUTE POSTHEMORRHAGIC ANEMIA Status: Acute (2) Esophageal varices with bleeding Code(s): I85.01 - ESOPHAGEAL VARICES WITH BLEEDING Status: Acute (3) Cirrhosis Code(s): K74.60 - UNSPECIFIED CIRRHOSIS OF LIVER Status: Chronic (4) History of ETOH abuse Code(s): F10.11 - ALCOHOL ABUSE, IN REMISSION Status: Chronic (5) Tobacco abuse Code(s): Z72.0 - TOBACCO USE Status: Chronic - Plan Plan: Patient is a 64 y/o female who presents to the ED for evaluation of hematemesis. # Acute Blood Loss Anemia 2/2 Upper GI Bleed - stable - Hgb stable > 7 this am, continue to monitor for bleeding, signs of hypovolemia via vitals. # Esophageal Varices, Yane Turner Tear -d/c Octreotide gtt after 72 hours, Protonix BID -Ceftriaxone for SBP prophylaxis. -GI consulted, endoscopy with banding/clipping performed; appreciate rec's. - Her primary GI team will not be sending her records until 11/24/19 for med rec, pt will need to continue home meds and follow up with primary GI team next week. - continue home spironolactone, start home propranolol 40 mg daily on discharge - advance diet as tolerated # Fever Catheter associated UTI vs Atalectasis vs Bibasilar Infiltrates Pt has not had fever since documentation yesterday afternoon - no tylenol administered. WBC count mildly increased, no bands - UTI w/ rocephin - night team initiated vancomycin to broaden coverage, consider switching to levaquin or increasing rocophin - pending sensitivities - catheter removed - continue incentive spirometer # Urinary retention - walk pt to restroom, bladder scan after pt cannot void # Abdominal Distention likely ascites - restart spironolactone # Patellar Fracture, Right -Ortho consulted; appreciate rec's. - weight bearing as tolerated in full extension, likely 6 weeks to heal per ortho - follow up outpt - pending LLE dopper # Cirrhosis 2/2 suspected alcohol - as above - pt takes spironolactone 25 mg, Propranolol 40 mg daily. Restart spironolactone for pt's abdominal ascites # Hx of EtOH Abuse -ASE Protocol -Will world travel counselor on the importance of EtOH cessation # Tobacco Abuse -Nicotine Patch 14 mg Daily -Will world travel counselor on the importance of tobacco abuse cessation PCP: CC Code: Full Diet: soft to low sodium Activity: Ambulate w/ Assist VTE PPx: None Dispo: monitor pt this afternoon Addendum - Attending - Attending Attestation Date/Time: 11/23/19 1205 I personally evaluated the patient and discussed the management with Dr. Frankel. I agree with the History, Examination, Assessment and Plan documented above with any addition or exceptions noted below. Patient doing well from variceal bleed standpoint. H/H stable. Off Octreotide, tolerating diet well. Had fever yesterday x1 that self resolved. So far infection workup has been negative. On vent 24 hours. Holding further abx at this time. Await cultures. Initiate abx if conditions worsens. If does well today and overnight with no evident infection source, should be stable for discharge tomorrow.
[2019-11-23] MEDS: Benzonatate 100 MG CAP PO PRN ×2 (06:29→18:10)
[2019-11-23 07:07] LABS: Anion Gap 11 mmol/L (10-20); BUN (Urea Nitrogen) 8 mg/dL (9.8-20.1); Calc. Creatinine Clearance 88 mL/min (70-130); Calcium 7.2 mg/dL (7.8-10.44); Carbon Dioxide 19 mmol/L (23-31); Chloride 110 mmol/L (98-107); Estimated GFR-MDRD Greater than 90; Glucose 91 mg/dL (80-115); Potassium 3.8 mmol/L (3.5-5.1); Sodium 136 mmol/L (136-145)
[2019-11-23] MEDS: Thiamine 100 MG TAB PO SCH (08:18)
[2019-11-23] MEDS: Folic Acid 1 MG TAB PO SCH (08:18)
[2019-11-23] MEDS: Spironolactone 25 MG TAB PO SCH (08:18)
[2019-11-23] MEDS: Nicotine 14 MG PATCH TD SCH (08:18)
[2019-11-23] MEDS ORDERED: Vancomycin 1 GM in Premix Bag 1 BAG IVPB SCH (09:00)
--- NOTE | 2019-11-23 09:09 | ULT ---
ULTRASOUND DOPPLER DUPLEX VENOUS LEFT LOWER EXTREMITY: DATE: 11/23/2019 HISTORY: 64-year-old female with left lower extremity pain TECHNIQUE: Grayscale, color-flow, and spectral analysis, of major veins of left lower extremity. FINDINGS: There is demonstration of blood flow with normal compressibility, of the left common femoral, profund a femoral, greater saphenous, femoral, popliteal, and posterior tibial, veins. IMPRESSION: Negative. No deep venous thrombosis of left lower extremity.
[2019-11-23 09:55] LABS: Hemoglobin 7.6 g/dL (12.0-16.0); Mean Corpuscular HGB CONC 34.2 g/dL (32.0-36.0); Mean Corpuscular Hemoglobin 33.3 pg (27.0-31.0); Mean Corpuscular Volume 97.3 fL (78.0-98.0); Mean Platelet Volume 7.5 fL (7.4-10.4); Platelet Count 141 thou/uL (130-400); RBC Distribution Width 16.4 % (11.5-14.5)
[2019-11-23 10:24] LABS: Eosinophils 4 % (0-10); Lymphocytes 8 % (21-51); MDiff Complete? YES; Monocytes 3 % (0-10); Neutrophil 85 % (42-75); Platelet Morphology Comment Appears Adequate
[2019-11-23 11:57] LABS: Eosinophils 4 % (0-10); Hemoglobin 7.6 g/dL (12.0-16.0); Lymphocytes 8 % (21-51); MDiff Complete? YES; Mean Corpuscular HGB CONC 34.2 g/dL (32.0-36.0); Mean Corpuscular Volume 96.3 fL (78.0-98.0); Mean Platelet Volume 8.2 fL (7.4-10.4); Monocytes 15 % (0-10); Neutrophil 73 % (42-75); Platelet Count 142 thou/uL (130-400); Platelet Morphology Comment Appears Adequate; Polychromasia SLIGHT = 2-3 cells (100X) (0-2/hpf); RBC Distribution Width 15.9 % (11.5-14.5); White Blood Cell (WBC) Count 14.8 thou/uL (4.8-10.8)
--- NOTE | 2019-11-23 12:35 | PRG ---
DATE OF SERVICE: 11/23/2019 SUBJECTIVE: Ms. Jesica Tee is a very pleasant 64-year-old Latin[place]Citizen [place] female with GI bleeding, liver cirrhosis. The patient underwent emergent EGD by Dr. Paul Guzman on 11/19/2019, and was found to have a Yane-Turner tear, which was treated with injection of epinephrine and also hemoclip placement. She had two variceal bandings for esophageal varices. She had done well over the last 4 days. She had some black tarry stool yesterday, but her blood count is actually stable. Apparently, she had probably passed some old blood. The hemoglobin yesterday was 8.3 and today 8.4, hematocrit 23.9 and today 24.3. She complains of generalized weakness, fatigue, and also abdominal bloating. She has a previous history of ascites and has had tap done in the past. No abdominal pain, no nausea, no vomiting. PHYSICAL EXAMINATION: GENERAL: Appears comfortable. VITAL SIGNS: Afebrile, pulse is 81, blood pressure 130/60. CARDIOVASCULAR: First and second heart sounds are normal. LUNGS: Clear to auscultation. ABDOMEN: Mildly distended. Abdomen is soft and nontender. No organomegaly. No masses. CLINICAL IMPRESSION: 1. Liver cirrhosis. 2. Upper gastrointestinal bleeding due to combination of Yane-Turner tear, esophageal varices. 3. Thrombocytopenia. 4. Anemia due to blood loss. RECOMMENDATIONS: 1. Continue to monitor hemoglobin and hematocrit. 2. We will sign off her on today, and if any new problems, please call us back. 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 Martins in [place] for further followup. Job ID: [id number]
[2019-11-23] MEDS: cefTRIAXone\\ROCEPHIN 1 GM in Sodium Chloride 0.9% 100 ML IVPB SCH (20:10)
--- NOTE | 2019-11-24 04:58 | PDOC.FM ---
- Subjective Subjective: Doing well this morning. Complains of difficulty with ambulation with her knee brace. States she feels that it weighs 20lbs and is too difficult to lift. - Objective MAR Reviewed: Yes Vital Signs & Weight: Vital Signs (12 hours) Temp Pulse Resp BP BP Pulse Ox 11/24/19 04:00 98.9 F 83 18 119/56 L 119/56 L 97 11/24/19 00:40 97 11/24/19 00:00 98.4 F 80 20 125/58 L 125/58 L 98 11/23/19 20:00 99.4 F 88 18 140/62 140/62 97 Weight Weight 56.7 kg Most Recent Monitor Data Heart Rate from ECG 78 NIBP 128/58 NIBP BP-Mean 81 Respiration from ECG 17 SpO2 92 I&O: 11/22/19 11/23/19 11/24/19 06:59 06:59 06:59 Intake Total 2111 90 Output Total 1168 700 400 Balance 929 -919 -574 Result Diagrams: 11/24/19 06:08 11/23/19 06:28 Phys Exam - Physical Examination Constitutional: NAD HEENT: PERRLA, moist MMs Neck: no nodes, no JVD Respiratory: no wheezing, no rales, no rhonchi, clear to auscultation bilateral Cardiovascular: RRR, no significant murmur, no rub Gastrointestinal: soft, non-tender Slightly distended, non-tender to palpation. No guarding or rebound. Musculoskeletal: no edema, pulses present Knee brace on left Neurological: non-focal, normal sensation Psychiatric: normal affect, A&O x 3 Skin: no rash, normal turgor Dx/Plan (1) Acute blood loss anemia Code(s): D62 - ACUTE POSTHEMORRHAGIC ANEMIA Status: Acute (2) Esophageal varices with bleeding Code(s): I85.01 - ESOPHAGEAL VARICES WITH BLEEDING Status: Acute (3) Cirrhosis Code(s): K74.60 - UNSPECIFIED CIRRHOSIS OF LIVER Status: Chronic (4) History of ETOH abuse Code(s): F10.11 - ALCOHOL ABUSE, IN REMISSION Status: Chronic (5) Tobacco abuse Code(s): Z72.0 - TOBACCO USE Status: Chronic - Plan Plan: Acute Blood Loss Anemia 2/2 Upper GI Bleed - stable - Hgb stable > 7 this am, continue to monitor for bleeding, signs of hypovolemia via vitals. - reports continued black stools, same as yesterday. Esophageal Varices, Yane Turner Tear -s/p Octreotide gtt x 72 hours, Protonix BID -Ceftriaxone for SBP prophylaxis. (11/17) Will d/c today. -GI consulted, endoscopy with banding/clipping performed; appreciate rec's. -Continue home spironolactone, start home propranolol 40 mg daily on discharge Fever, Resolved. - Afebrile x 24 hours. Urinary retention, resolved Abdominal Distention likely ascites - restart spironolactone Patellar Fracture, Right -Ortho consulted; appreciate rec's.Will have outpatient F/u. Cirrhosis 2/2 suspected alcohol -Has outpatient GI. Will f/u on d/c. Will d/c with Propranolol. Hx of EtOH Abuse -ASE Protocol -recommend EtOH cessation Tobacco Abuse -Nicotine Patch 14 mg Daily -recommend cessation. PCP: CC Code: Full Diet: soft to low sodium Activity: Ambulate w/ Assist VTE PPx: None Dispo: Stable for d/c. Addendum - Attending - Attending Attestation Date/Time: 11/24/19 2664 I personally evaluated the patient and discussed the management with Dr. Riojas I agree with the History, Examination, Assessment and Plan documented above with any addition or exceptions noted below- Patient without complaints. Ambulating to bathroom with assistance. Afebrile VSS. A/P: 1) Acute blood loss anemia secondary to GI bleed- H/H stable; continue to monitor. 2) Deconditioning - continue PT. Will evaluate for SNF versus HH with PT. 3) GI bleed- stable.
[2019-11-24 06:18] LABS: #Basophils 0.1 thou/uL (0.0-0.2); #Eosinphils 0.4 thou/uL (0.0-0.7); #Lymphocytes 1.8 thou/uL (1.20-3.40); #Monocytes 1.4 thou/uL (0.11-0.59); #Neutrophils 8.9 thou/uL (1.40-6.50); %Basophils 0.5 % (0.0-1.0); %Eosinophils 3.1 % (0.0-10.0); %Lymphocytes 14.2 % (21.0-51.0); %Monocytes 10.9 % (0.0-10.0); %Neutrophils 71.3 % (42.0-75.0); Hemoglobin 7.2 g/dL (12.0-16.0); Mean Corpuscular Volume 97.1 fL (78.0-98.0); Mean Platelet Volume 7.5 fL (7.4-10.4); Platelet Count 157 thou/uL (130-400); Red Blood Cell (RBC) Count 2.17 mill/uL (4.20-5.40); White Blood Cell (WBC) Count 12.4 thou/uL (4.8-10.8)
[2019-11-24] MEDS: Spironolactone 25 MG TAB PO SCH (08:00)
[2019-11-24] MEDS: Folic Acid 1 MG TAB PO SCH (08:00)
[2019-11-24] MEDS: Nicotine 14 MG PATCH TD SCH (08:00)
[2019-11-24] MEDS: Thiamine 100 MG TAB PO SCH (08:00)
[2019-11-24] MEDS ORDERED: Melatonin 3 MG TAB PO PRN (16:52)
[2019-11-24] MEDS: Benzonatate 100 MG CAP PO PRN (20:04)
[2019-11-24] MEDS: cefTRIAXone\\ROCEPHIN 1 GM in Sodium Chloride 0.9% 100 ML IVPB SCH (20:05)
--- NOTE | 2019-11-25 05:58 | PDOC.FM ---
- Subjective Subjective: Doing well this morning. Eager for d/c planning. - Objective MAR Reviewed: Yes Vital Signs & Weight: Vital Signs (12 hours) Temp Pulse Resp BP BP Pulse Ox 11/25/19 04:00 99.3 F 80 18 140/63 140/63 96 11/25/19 00:00 127/56 L 11/24/19 23:57 99.1 F 85 16 127/56 L 97 11/24/19 20:31 99.7 F H 82 16 112/54 L 98 11/24/19 20:00 115/54 L 97 Weight Weight 56.7 kg Most Recent Monitor Data Heart Rate from ECG 78 NIBP 128/58 NIBP BP-Mean 81 Respiration from ECG 17 SpO2 92 I&O: 11/23/19 11/24/19 11/25/19 06:59 06:59 06:59 Intake Total 90 1250 Output Total 129 669 3033 Balance -922 -242 -6018 Result Diagrams: 11/24/19 06:08 11/23/19 06:28 Phys Exam - Physical Examination Constitutional: NAD HEENT: PERRLA, moist MMs Neck: supple, full ROM Respiratory: no wheezing, no rales, no rhonchi, clear to auscultation bilateral Cardiovascular: RRR, no significant murmur, no rub Gastrointestinal: soft, no distention Musculoskeletal: no edema, pulses present Brace on left leg Neurological: non-focal, normal sensation Psychiatric: normal affect, A&O x 3 Skin: no rash, normal turgor Dx/Plan (1) Acute blood loss anemia Code(s): D62 - ACUTE POSTHEMORRHAGIC ANEMIA Status: Acute (2) Esophageal varices with bleeding Code(s): I85.01 - ESOPHAGEAL VARICES WITH BLEEDING Status: Acute (3) Cirrhosis Code(s): K74.60 - UNSPECIFIED CIRRHOSIS OF LIVER Status: Chronic (4) History of ETOH abuse Code(s): F10.11 - ALCOHOL ABUSE, IN REMISSION Status: Chronic (5) Tobacco abuse Code(s): Z72.0 - TOBACCO USE Status: Chronic - Plan Plan: Acute Blood Loss Anemia 2/2 Upper GI Bleed - stable - Hgb stable > 7 yesterday. Continue to monitor for bleeding, signs of hypovolemia via vitals. Esophageal Varices, Yane Turner Tear -s/p Octreotide gtt x 72 hours, Protonix daily [X] Ceftriaxone for SBP prophylaxis. (11/17-11/23) -GI consulted, endoscopy with banding/clipping performed; GI has signed off the case. 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 -Continue home spironolactone, start home propranolol 40 mg daily on discharge Fever, Resolved. - Afebrile x 24 hours. Urinary retention, resolved Abdominal Distention likely ascites - restart spironolactone Patellar Fracture, Right -Ortho consulted; appreciate rec's.Will have outpatient F/u. Cirrhosis 2/2 suspected alcohol -Has outpatient GI. Will f/u on d/c. Will d/c with Propranolol. Hx of EtOH Abuse -ASE Protocol -recommend EtOH cessation Tobacco Abuse -Nicotine Patch 14 mg Daily -recommend cessation. PCP: CC Code: Full Diet: soft to low sodium Activity: Ambulate w/ Assist VTE PPx: None Dispo: Stable for d/c. Addendum - Attending - Attending Attestation Date/Time: 11/25/19 3708 I personally evaluated the patient and discussed the management with Dr. I agree with the History, Examination, Assessment and Plan documented above with any addition or exceptions noted below - Patient without complaints. PAin controlled. Afebrile VSS. A/P: 1) Upper GI bleed secondary to Mllory Turner tear - stable. 2) Anemia secondary to blood loss- recheck H/H in AM. 3) Deconditioning- awaiting approval for rehab versus SNF.
[2019-11-25] MEDS: Folic Acid 1 MG TAB PO SCH (08:45)
[2019-11-25] MEDS: Spironolactone 25 MG TAB PO SCH (08:45)
[2019-11-25] MEDS: Thiamine 100 MG TAB PO SCH (08:45)
[2019-11-25] MEDS: Nicotine 14 MG PATCH TD SCH (08:46)
[2019-11-25 19:32] VITALS: BP 138/64; TEMP 99
[2019-11-26] MEDS ORDERED: Propranolol 40 MG TAB PO SCH (09:00)
--- NOTE | 2019-11-26 11:28 | PQF ---
RUTHY FRANCISCO GABRIEL MD [id number] ONC-[id number] CLINICAL DOCUMENTATION CLARIFICATION FORM: POST DISCHARGE Addendum to original discharge summary date: ____ Late entry note date: __ DATE: 11/26/2019 ATTN:KAYLAN CHA MD Please exercise your independent, professional judgment in responding to the clarification form. Clinical indicators are provided on the bottom of this form for your review Please check appropriate box(s): [ ] Acute Respiratory Failure: [ ] with Hypoxia[ ] with Hypercapnia [ ] Acute On Chronic Respiratory Failure: [ ] with Hypoxia [ ] with Hypercapnia [ ] Acute Respiratory Failure due to: (etiology) [ ] ARDS (Acute Respiratory Distress Syndrome) [ ] Chronic Respiratory Failure only [ ] with Hypoxia [ ] with Hypercapnia [ ] Other diagnosis [ ] Unable to determine In addition, please specify: Present on Admission (POA): [ ] Yes [ ] No [ ] Unable to determine For continuity of documentation, please document condition throughout progress notes and discharge summary. Thank You. CLINICAL INDICATORS - SIGNS / SYMPTOMS / LABS - Respiratory failure-Consult report, 11/19, Matias Barlow MD - Sat: 94L on 11/20, 92L on 11/21- Vital signs report. - RR: 28H, 24H-Vital signs report RISK FACTORS - Severe hypotension- Consult report, 11/19, Matias Barlow MD - Acute blood loss anemia-Family medicine H&P, 11/18, Ksenia Washington MD TREATMENTS: - Mechanical ventilation- 11/18 (This form is maintained as a part of the permanent medical record) 2014 [employer]. All Rights Reserved Gudelia [email or web address] Please assign to Dr Bernal to complete. MTDD
--- NOTE | 2019-11-26 13:51 | DIS ---
DATE OF ADMISSION: 11/18/2019 DATE OF DISCHARGE: 11/25/2019 ADMITTING ATTENDING: Dr. Pratt. DISCHARGE ATTENDING: Dr. Sanchez. RESIDENT: Trinh Riojas MD CONSULTS: 1. Dr. Leal, Orthopedics. 2. Dr. Guzman, Dr. Diggs, and Dr. Del Real, Gastroenterology. 3. Dr. Barlow, Pulmonology. PROCEDURES: Esophagogastroduodenoscopy on 11/19/2019, which found varices in the distal esophagus and Yane-Turner tear. The Yane-Turner tear was injected with epinephrine and clipped with a hemoclip. PRIMARY DIAGNOSIS: Acute blood loss anemia secondary to upper GI bleed. SECONDARY DIAGNOSES: 1. Esophageal varices. 2. Patellar fracture, right. 3. Cirrhosis. 4. Alcohol abuse. 5. Tobacco abuse. DISCHARGE MEDICATIONS: 1. Protonix. 2. Spironolactone. 3. Folic acid. 4. Melatonin. 5. Propranolol. 6. Thiamine. DISCONTINUED MEDICATION: None. HISTORY OF PRESENT ILLNESS/HOSPITAL COURSE: Randal Gonzalez is a 64-year-old female with a past medical history significant for cirrhosis and multiple episodes of hematemesis in the past secondary to esophageal variceal bleeding, that has required banding in the past most recently in January of 2019. She presented to ER for hematemesis. On admission, her hemoglobin is noted to be 7.2. She received 3 units of packed red blood cells and 1 unit of plasma while she was in the hospital. She underwent EGD for evaluation of her variceal bleeding. Dr. Barlow was consulted because she was taken back to the ICU and intubated after the procedure to prevent further tearing in her esophagus. 24 hours after the procedure, she was extubated the day after and recovered well. Dr. Leal was contacted for management of her patellar fracture and recommended an immobilizer and follow up as outpatient within 6 weeks. Throughout her stay, her hemoglobin continued to improve. The patient gained strength and mobility. The patient decided she would benefit from increased physical therapy prior to being discharged home. It was felt that the patient unsafe to be alone in her house in her physical condition. The patient was discharged to inpatient rehab. DISPOSITION: Stable. DISCHARGE INSTRUCTIONS: LOCATION: Inpatient rehab. DIET: Regular. ACTIVITY: Ad omar with knee immobilizer. FOLLOWUP: Follow up with primary care physician within 7 days of discharge from rehab and with Dr. Leal within 6 weeks from discharge from rehab. Job ID: [id number] MTDD
--- NOTE | 2019-12-03 01:46 | PQF ---
RUTHY FRANCISCO Thomas MD [id number] ONC-[id number] CLINICAL DOCUMENTATION CLARIFICATION FORM: POST DISCHARGE Addendum to original discharge summary date: ____ Late entry note date: __ DATE: 12/03/2019 ATTN: Matias Barlow MD Please exercise your independent, professional judgment in responding to the clarification form. Clinical indicators are provided on the bottom of this form for your review Please check appropriate box(s): [ ] Acute Respiratory Failure: [ ] with Hypoxia[ ] with Hypercapnia [ ] Acute On Chronic Respiratory Failure: [ ] with Hypoxia [ ] with Hypercapnia [ ] Acute Respiratory Failure due to: (etiology) [ ] ARDS (Acute Respiratory Distress Syndrome) [ ] Chronic Respiratory Failure only [ ] with Hypoxia [ ] with Hypercapnia [ ] Other diagnosis [ ] Unable to determine In addition, please specify: Present on Admission (POA): [ ] Yes [ ] No [ ] Unable to determine For continuity of documentation, please document condition throughout progress notes and discharge summary. Thank You. CLINICAL INDICATORS - SIGNS / SYMPTOMS / LABS - Respiratory failure- Consult report, Matias Barlow MD - Sat 94L on 11/20, 92L on 11/21- Vital signs report - RR: 28H, 24H-Vital signs report RISK FACTORS - Severe hypotension- Consult report, 11/19, Cain Salcedo MD - Acute blood loss anemia- [facility] medicine H&P, 11/18- SAFIA OG TREATMENTS: -Mechanical ventilation-11/18 (This form is maintained as a part of the permanent medical record) 2014 [employer] All Rights Reserved Gudelia [email or web address]
== END 2019-11-25 20:29 | DRG 368 ==
LOC: ERS 21:11 → CCU 23:06 → ONC 11-21 20:57
PROVIDERS: ADMIT Family Medicine; ATTEND Family Medicine
PROC: 0W3P8ZZ Control Bleeding in Gastrointestinal Tract, Via Natural or Artificial Opening Endoscopic (ICD-10-PCS; principal; 2019-11-19)
DX: K22.6 Gastro-esophageal laceration-hemorrhage syndrome (principal); J96.90 Respiratory failure, unspecified, unspecified whether with hypoxia or hypercapnia; S82.092A Other fracture of left patella, initial encounter for closed fracture; D62 Acute posthemorrhagic anemia; E87.2 Acidosis; K70.31 Alcoholic cirrhosis of liver with ascites; I85.01 Esophageal varices with bleeding; K92.0 Hematemesis; F17.210 Nicotine dependence, cigarettes, uncomplicated; R33.9 Retention of urine, unspecified; F10.10 Alcohol abuse, uncomplicated; R73.9 Hyperglycemia, unspecified; I95.9 Hypotension, unspecified; Z88.0 Allergy status to penicillin
CPT/HCPCS: 36415; 36430; 71045; 80048; 80053; 81001; 82805; 83735; 84100; 84145; 85007; 85025; 85027; 85610; 85730; 86850; 86900; 86901; 87040; 87086; 93005; 94002; 94003; 96365; 96367; 96376; 99292; C9113; J0171; J0696; J1430; J2001; J2060; J2354; J2704; J3010; J3370; J3411; J3490; J7042; J7050; P9016; P9048